=== PATIENT | male | born 2005 | race Caucasian/White ===

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

== ENCOUNTER 2023-12-08 08:57 | Outpatient (CLI) | payer OTHER ==
[2023-12-08 14:03] LABS: ESTIMATED AVERAGE GLUCOSE 74 mg/dL (70-100); HEMOGLOBIN A1c% 4.2 % (4.27-6.07)
[2023-12-10 15:09] LABS: HDL-P (TOTAL) 31.9 umol/L (>=30.5); LDL-P 929 nmol/L (<1000); LP-INSULIN RESISTANCE SCORE 44 (<=45); SMALL LDL-P 371 nmol/L (<=527)
== END 2023-12-08 08:58 | disposition home or self-care (01) ==
LOC: LAB 08:57
DX: F64.0 Transsexualism (principal); E66.3 Overweight; Z79.899 Other long term (current) drug therapy
CPT/HCPCS: 36415; 83036; 83704; 84132; 84403

== ENCOUNTER 2024-02-15 05:20 | Outpatient (CLI) | payer OTHER | END 2024-02-15 05:21 | disposition home or self-care (01) | LOC: LAB 05:20 | PROVIDERS: ATTEND Family Medicine | DX: F64.0 Transsexualism (principal); Z79.890 Hormone replacement therapy | CPT/HCPCS: 36415; 82642; 82670 ==